=== PATIENT | male | born 1945 | race American Indian/Alaskan Native ===

== ENCOUNTER 2017-12-04 10:55 | Emergency (ER) | payer MEDICARE ==
[2017-12-04 11:08] VITALS: BP 148/67
[2017-12-04] MEDS ORDERED: DUONEB *Not for PRN Use IH ONE (12:16)
[2017-12-04] MEDS ORDERED: DELTASONE PO ONE (12:17)
--- NOTE | 2017-12-04 12:18 | Emergency Department Report ---
Chief Complaint: Adult Asthma Stated Complaint: DIFFICULTY BREATHING Time Seen by Provider: 12/04/17 12:12 - HPI History of Present Illness: 72-year-old male presents to the emergency department with the complaint of a one-week history of some shortness of breath, wheezing and coughing. He denies any chest pain, fever, nausea, vomiting, back pain or diaphoresis. He says that it feels like an asthma attack and says that he has a remote history of asthma. He does not have any inhaler or nebulizer treatments and did not take anything for his symptoms prior to presentation. No recent travel or sick contacts at home. He has a primary care physician and says that he had a physical 2 weeks ago, including blood work, and everything was normal. - ROS Review of Systems: Positive for shortness of breath, wheezing, cough Negative for chest pain, fever, back pain, diaphoresis, vomiting - Exam Vital Signs: Vital Signs 12/04/17 12/04/17 11:03 12:10 Temperature 98.2 F Pulse Rate 67 Respiratory 18 16 Rate Blood Pressure 148/67 O2 Sat by Pulse 96 Oximetry Physical Exam: Normal heart sounds to auscultation. Mild wheezing on inspiration and expiration. No accessory muscle use or signs of respiratory distress. MSE screening note: Focused history and physical exam performed. Due to findings the following was ordered: The patient will have a 2 view chest x-ray, received prednisone and a breathing treatment. The patient refused labs at this time. ED Disposition for MSE Condition: Stable Referrals: PRIMARY CARE, [Primary Care Provider] - 3-5 Days
--- NOTE | 2017-12-04 12:52 | XRay Report ---
ROUTINE CHEST, TWO VIEWS: HISTORY: Shortness of breath. The trachea, heart, mediastinal contour, lung figueroa and bony thorax are unremarkable. IMPRESSION: No acute cardiopulmonary process is identified.
--- NOTE | 2017-12-04 13:39 | Emergency Department Report ---
ED Asthma HPI - General Chief Complaint: Adult Asthma Stated Complaint: DIFFICULTY BREATHING Time Seen by Provider: 12/04/17 12:12 Source: patient Mode of arrival: Ambulatory Limitations: No Limitations - History of Present Illness Initial Comments: This is a 72-year-old male nontoxic, well nourished in appearance, no acute signs of distress presents to the ED with c/o of shortness of breath and wheezing times x1 week. Patient stated that he has been outside around pollen a lot. Patient denies any productive cough. Patient denies any sick contact. Patient denies any recent travels, long car, recent hospital stays. Patient denies any calf pain or calf tenderness. Patient denies any chest pain, fever, chills, nausea, vomiting, hemoptysis, numbness, tingling, headache or stiff neck. Patient denies any drug allergies. Past medical history includes asthma. MD Complaint: "asthma attack", shortness of breath, wheezing -: week(s) (1) Asthma History: childhood onset Severity: mild Context: none known Associated Symptoms: dry cough - Related Data Current Asthma Therapy: none Previous Rx's Medication Instructions Recorded Last Taken Type ALBUTEROL Inhaler [ProAir HFA 2 puff IH QID PRN #1 inhalation 12/04/17 Unknown Rx Inhaler] Prednisone [predniSONE 10 mg 10 mg PO .TAPER #1 tab.ds.pk 12/04/17 Unknown Rx (6-Day Pack, 21 Tabs)] Allergies Allergy/AdvReac Type Severity Reaction Status Date / Time No Known Allergies Allergy Unverified 12/04/17 11:03 ED Review of Systems ROS: Stated complaint: DIFFICULTY BREATHING Other details as noted in HPI Constitutional: denies: chills, fever Eyes: denies: eye pain, eye discharge, vision change ENT: denies: ear pain, throat pain Respiratory: cough, shortness of breath, wheezing Cardiovascular: denies: chest pain, palpitations Endocrine: no symptoms reported Gastrointestinal: denies: abdominal pain, nausea, diarrhea Genitourinary: denies: urgency, dysuria Musculoskeletal: denies: back pain, joint swelling, arthralgia Skin: denies: rash, lesions Neurological: denies: headache, weakness, paresthesias Psychiatric: denies: anxiety, depression Hematological/Lymphatic: denies: easy bleeding, easy bruising ED Past Medical Hx - Past Medical History Hx Asthma: Yes - Surgical History Additional Surgical History: HERNIA - Social History Smoking Status: Never Smoker Substance Use Type: None - Medications Home Medications: Home Medications Medication Instructions Recorded Confirmed Last Taken Type ALBUTEROL Inhaler [ProAir HFA 2 puff IH QID PRN #1 inhalation 12/04/17 Unknown Rx Inhaler] Prednisone [predniSONE 10 mg 10 mg PO .TAPER #1 tab.ds.pk 12/04/17 Unknown Rx (6-Day Pack, 21 Tabs)] ED Physical Exam - General Limitations: No Limitations General appearance: alert, in no apparent distress - Head Head exam: Present: atraumatic, normocephalic - Eye Eye exam: Present: normal appearance Pupils: Present: normal accommodation - ENT ENT exam: Present: normal exam, mucous membranes moist - Neck Neck exam: Present: normal inspection, full ROM. Absent: tenderness, meningismus, lymphadenopathy - Respiratory Respiratory exam: Present: normal lung sounds bilaterally, wheezes (bilateral upper and lower lobes). Absent: respiratory distress, rales, rhonchi, stridor, chest wall tenderness, accessory muscle use, decreased breath sounds, prolonged expiratory - Cardiovascular Cardiovascular Exam: Present: regular rate, normal rhythm, normal heart sounds. Absent: bradycardia, tachycardia, irregular rhythm, systolic murmur, diastolic murmur, rubs, gallop - GI/Abdominal GI/Abdominal exam: Present: soft, normal bowel sounds - Rectal Rectal exam: Present: deferred - Extremities Exam Extremities exam: Present: normal inspection, full ROM, normal capillary refill - Back Exam Back exam: Present: normal inspection, full ROM - Neurological Exam Neurological exam: Present: alert, oriented X3, normal gait - Psychiatric Psychiatric exam: Present: normal affect, normal mood - Skin Skin exam: Present: warm, dry, intact, normal color. Absent: rash ED Course Vital Signs 12/04/17 12/04/17 11:03 12:10 Temperature 98.2 F Pulse Rate 67 Respiratory 18 16 Rate Blood Pressure 148/67 O2 Sat by Pulse 96 Oximetry - Reevaluation(s) Reevaluation #1: 12/04/17 13:39 Patient is speaking in full sentences with no signs of distress noted. - Consultations Consultation #1: 12/04/17 13:39 Patient has been consulted with Dr. Palacios about patient history, physical exam, and xray and examined and screened patient and agrees to ED plan of care and discharge plan of care. ED Medical Decision Making - Medical Decision Making This is a 72-year-old male that presents with asthma exacerbation. Patient is stable and was examined by me. Chest x-ray has been obtained and dictated by the radiologist within normal limits. Patient is notified of the x-ray report with no questions noted by the patient. Patient did receive DuoNeb and steroids in the ED which patient the symptoms has resolved and subsided. Posttreatment and there is no wheezing upon auscultation. Patient is discharged with albuterol and prednisone. Patient was referred to Follow-up with a primary care doctor in 3-5 days or if symptoms worsen and continue return to emergency room as soon as possible. At time of discharge, the patient does not seem toxic or ill in appearance. No acute signs of distress noted. Patient agrees to discharge treatment plan of care. No further questions noted by the patient. This chart is dictated with using [employer] Critical care attestation.: If time is entered above; I have spent that time in minutes in the direct care of this critically ill patient, excluding procedure time. ED Disposition Clinical Impression: Asthma exacerbation Qualifiers: Asthma severity: mild Asthma persistence: intermittent Qualified Code(s): J45.21 - Mild intermittent asthma with (acute) exacerbation Disposition: DC-01 TO HOME OR SELFCARE Is pt being admited?: No Does the pt Need Aspirin: No Condition: Stable Instructions: Asthma (ED) Additional Instructions: Follow-up with a primary care doctor in 3-5 days or if symptoms worsen and continue return to emergency room as soon as possible. Prescriptions: ALBUTEROL Inhaler [ProAir HFA Inhaler] 2 puff IH QID PRN #1 inhalation PRN Reason: Shortness Of Breath Prednisone [predniSONE 10 mg (6-Day Pack, 21 Tabs)] 10 mg PO .TAPER #1 tab.ds.pk Referrals: PRIMARY CARE, [Primary Care Provider] - 3-5 Days JONY SALINAS MD [Staff Physician] - 3-5 Days [facility] [Outside] - 3-5 Days [facility] [Outside] - 3-5 Days Forms: Work/School Release Form(ED)
== END 2017-12-04 13:59 | disposition home or self-care (01) ==
LOC: ED 10:55
DX: J45.21 Mild intermittent asthma with (acute) exacerbation (principal)
CPT/HCPCS: 71046; 94640; J7512

== ENCOUNTER 2020-10-20 12:22 | Emergency (ER) | payer MEDICARE ==
--- NOTE | 2020-10-20 12:43 | Event Note ---
ED Screening Note Date of service: 10/20/20 Time: 12:40 ED Screening Note: 75-year-old male patient presents emergency department complaints of chest pain and left facial numbness starting 11 hours ago. Patient states both of these symptoms have improved significantly since onset without intervention. No history of similar symptoms. No known cardiac risk factors. Patient is not anticoagulated. General: Awake, appropriately interactive, no acute distress. Neck: Supple. Full range of motion intact. Cardiovascular: Regular rate and rhythm. Normal peripheral perfusion. Pulmonary: Clear to auscultation bilaterally. No respiratory distress. Patient is speaking normally without use of accessory muscles. Skin: No apparent rashes or lesions. Neurological: No facial asymmetry although patient reports decreased sensation to light touch along the left side of the face. Speech is clear. Follows commands. Patient is alert and oriented. Strength and sensation intact throughout. Musculoskeletal: Moves all four extremities spontaneously with normal range of motion. Psych: Cooperative. Appropriate mood and affect. Patient is not a candidate for TPA due to delayed presentation; CT head w/o contrast ordered in addition to cardiac work-up. I have greeted and performed a focused rapid initial assessment of this patient. A comprehensive ED assessment and evaluation of the patient, analysis of all test results, and completion of the medical decision-making process will be conducted by additional ED providers. This initial assessment/diagnostic orders/clinical plan/treatment(s) is/are subject to change based on patients health status, clinical progression and re-assessment. Further treatment and workup at subsequent clinical provider's discretion. Patient/guardian urged not to elope from the ED as their condition may be serious if not clinically assessed and managed.
--- NOTE | 2020-10-20 13:08 | XRay Report ---
CHEST 2 VIEWS INDICATION / CLINICAL INFORMATION: chest pain. COMPARISON: 12/04/2017. FINDINGS: SUPPORT DEVICES: None. HEART / MEDIASTINUM: No significant abnormality. LUNGS / PLEURA: No significant pulmonary or pleural abnormality. No pneumothorax. ADDITIONAL FINDINGS: No significant additional findings. IMPRESSION: 1. No acute cardiopulmonary abnormality. Signer Name: Baron Butt MD Signed: 10/20/2020 1:04 PM Workstation Name: [id number]
[2020-10-20 13:22] LABS: Hematocrit 38.2 % (35.5-45.6); Hemoglobin 12.7 gm/dl (11.8-15.2); Mean Corpuscular HGB Conc 33 % (32-34); Mean Corpuscular Volume 79 fl (84-94); Platelet Count 122 K/mm3 (140-440); Red Blood Count 4.84 M/mm3 (3.65-5.03)
[2020-10-20 13:32] LABS: INR 1.08 (0.87-1.13); Partial Thromboplastin Time 28.1 Sec. (24.2-36.6)
[2020-10-20 13:43] LABS: Alanine Aminotransferase 77 units/L (7-56); Albumin 3.8 g/dL (3.9-5); BUN/Creatinine Ratio 9; Blood Urea Nitrogen 11 mg/dL (9-20); Calcium 9.4 mg/dL (8.4-10.2); Hemolysis Index 94
[2020-10-20 13:57] LABS: Anisocytosis 1+; Total Cells Counted 100
[2020-10-20 13:58] LABS: Hypochromasia 1+; Platelet Estimate Consistent w Auto; Target Cells Few
--- NOTE | 2020-10-20 14:10 | Cat Scan Report ---
CT head/brain wo con INDICATION / CLINICAL INFORMATION: 75 years Male; left facial numbness x11 hrs. TECHNIQUE: Routine CT head without contrast. All CT scans at this location are performed using CT dos e reduction for ALARA by means of automated exposure control. COMPARISON: None. FINDINGS: There is mild cerebral white matter disease most consistent with microvascular angiopathy. There is a lso mild cerebral atrophy. The ventricular system is correspondingly appropriate in size and configur ation. There is no clear CT evidence of acute intracranial hemorrhage or significant mass effect. The re is mild calcification along the falx and tentorium. ORBITS: No significant abnormality of visualized orbits. SINUSES / MASTOIDS: No significant abnormality in the visualized paranasal sinuses or mastoid air oscar ls. CRANIOCERVICAL JUNCTION: No significant abnormality. ADDITIONAL FINDINGS: There is dense atherosclerotic calcification within the distal internal carotid arteries. IMPRESSION: 1. This mild microvascular angiopathy and cerebral atrophy as described without CT evidence of acute intracranial hemorrhage. Signer Name: Hardik Whitten MD Signed: 10/20/2020 2:06 PM Workstation Name: [id number]
[2020-10-20] MEDS ORDERED: SODIUM CHLORIDE 0.9% 500 ML 500 ML IV ONE (15:08)
--- NOTE | 2020-10-20 15:09 | Emergency Department Report ---
ED General Adult HPI - General Chief complaint: Chest Pain Stated complaint: my chest hurts and my face and neck were numb PUI?: No Time Seen by Provider: 10/20/20 14:40 Source: patient, RN notes reviewed, old records reviewed Mode of arrival: Ambulatory Limitations: No Limitations - History of Present Illness Initial comments: The patient was evaluated in the emergency department for symptoms described in the history of present illness. He/she was evaluated in the context of the global COVID-19 pandemic, which necessitated consideration that the patient might be at risk for infection with the virus that causes COVID-19. Institutional protocols and algorithms that pertain to the evaluation of patients at risk for COVID-19 are in a state of rapid change based on information released by regulatory bodies including the CDC and federal and state organizations. These policies and algorithms were followed during the pat ient's care in the emergency department. Please note that these policies, procedures and recommendations changed on a rapid basis. The patient is a pleasant 75-year-old gentleman. He is [id number], and not known to myself previously. He presents to the ER today with a complaint of nontraumatic left-sided chest pain, which started last night/this morning, at 1:00 in the morning, that radiated up to his left neck, and left face. He reports a sensation of left facial numbness and left neck numbness, which is now resolved. The patient states his chest pain is improved at this time. The patient has a mild headache, but denies loss of vision, midline neck pain, abdominal pain, vomiting, diaphoresis, he denies loss of taste and smell, he denies travel, surgery, DVT and pulmonary embolism risk factors. No recent aspirin consumption, no recent cardiac risk ratification. No signif icant family history that he is aware of. He reports that he feels that his face feels back to normal, and he has minimal chest discomfort at this time. He denies additional injuries and complaints. He denies loss of vision, and jaw claudication. -: Gradual, hour(s) Location: chest Radiation: neck, other (face) Severity scale (0 -10): 5 Quality: aching Consistency: now resolved Improves with: none Worsens with: none Associated Symptoms: denies other symptoms - Related Data Previous Rx's Medication Instructions Recorded Last Taken Type Albuterol Mdi (or & Nicu Only) 2 puff IH QID PRN #1 inhalation 12/04/17 Unknown Rx [ProAir HFA Inhaler] Prednisone [predniSONE 10 mg 10 mg PO .TAPER #1 tab.ds.pk 12/04/17 Unknown Rx (6-Day Pack, 21 Tabs)] Amlodipine Besylate [Norvasc] 5 mg PO QDAY #30 tablet 10/20/20 Unknown Rx Aspirin 325 mg PO QDAY #30 tablet 10/20/20 Unknown Rx Allergies Allergy/AdvReac Type Severity Reaction Status Date / Time No Known Allergies Allergy Unverified 12/04/17 11:03 ED Review of Systems ROS: Stated complaint: CHEST PAIN/NUMBNESS LT FACE Other details as noted in HPI Comment: All other systems reviewed and negative Cardiovascular: chest pain Neurological: headache, numbness, paresthesias ED Past Medical Hx - Past Medical History Previous Medical History?: Yes Hx Asthma: Yes - Surgical History Past Surgical History?: Yes Additional Surgical History: HERNIA - Social History Smoking Status: Never Smoker Substance Use Type: None - Medications Home Medications: Home Medications Medication Instructions Recorded Confirmed Last Taken Type Albuterol Mdi (or & Nicu Only) 2 puff IH QID PRN #1 inhalation 12/04/17 Unknown Rx [ProAir HFA Inhaler] Prednisone [predniSONE 10 mg 10 mg PO .TAPER #1 tab.ds.pk 12/04/17 Unknown Rx (6-Day Pack, 21 Tabs)] Amlodipine Besylate [Norvasc] 5 mg PO QDAY #30 tablet 10/20/20 Unknown Rx Aspirin 325 mg PO QDAY #30 tablet 10/20/20 Unknown Rx ED Physical Exam - General Limitations: No Limitations General appearance: alert, in no apparent distress - Head Head exam: Present: atraumatic, normocephalic - Eye Eye exam: Present: normal appearance, PERRL, EOMI, other (Visual acuity intact to finger counting, color perception, reading at a close distance). Absent: nystagmus - ENT ENT exam: Present: normal exam, normal orophraynx, mucous membranes moist, normal external ear exam - Neck Neck exam: Present: normal inspection, full ROM. Absent: tenderness, meningismus - Respiratory Respiratory exam: Present: normal lung sounds bilaterally. Absent: respiratory distress, wheezes, rales, rhonchi, stridor, chest wall tenderness - Cardiovascular Cardiovascular Exam: Present: regular rate, normal rhythm, normal heart sounds. Absent: bradycardia, tachycardia, irregular rhythm, systolic murmur, diastolic murmur, rubs, gallop - GI/Abdominal GI/Abdominal exam: Present: soft. Absent: distended, tenderness, guarding, rebound, rigid, pulsatile mass - Rectal Rectal exam: Present: deferred - Extremities Exam Extremities exam: Present: normal inspection, full ROM, other (2+ pulses noted in the bilateral upper and lower extremities. There is no palpable cord. negative Homans sign. Muscular compartments are soft. The pelvis is stable.). Absent: pedal edema, calf tenderness - Back Exam Back exam: Present: normal inspection, full ROM. Absent: tenderness, CVA tenderness (R), CVA tenderness (L), paraspinal tenderness, vertebral tenderness - Neurological Exam Neurological exam: Present: alert, normal gait, other (No facial droop. Tongue midline. Extraocular movements intact bilaterally. Facial sensation intact to light touch in V1, V2, V3 distribution bilaterally. 5 and a 5 strength in 4 extremities. Sensation intact to light touch in 4 extremities.). Absent: motor sensory deficit - Psychiatric Psychiatric exam: Present: normal affect, normal mood - Skin Skin exam: Present: warm, dry, intact, normal color. Absent: rash ED Course Vital Signs 10/20/20 10/20/20 10/20/20 12:34 15:18 15:21 Temperature 98.0 F 98.2 F Pulse Rate 71 59 L Respiratory 18 16 16 Rate Blood Pressure 157/76 231/126 [Right] O2 Sat by Pulse 97 98 Oximetry - Reevaluation(s) Reevaluation #1: 10/20/20 15:42 Differential diagnosis, including but not limited to: Acute coronary syndrome, GERD, gastritis, hiatal hernia, pneumonia, TIA, carotid dissection, aortic dissection Assessment and plan: 75-year-old gentleman with a complaint of left-sided chest pain and pressure that radiates to the left neck and face, last known well time 1:00 this morning, neurologic symptoms now resolved, chest pain now resolved, who is not currently tachycardic, tachypneic or hypoxic, who denies DVT and pulmonary embolism risk factors, who is low risk by Wells criteria for pulmonary embolism. Patient is at moderate risk for major adverse cardiac event as per heart score. He has an NIH score of 0. Patient initially amenable to CT angiogram head and neck to evaluate for dissection, CT angiogram of head and neck will also evaluate aortic structures. We did recommend admission to the medical service for cardiac risk ratification, and TIA evaluation, if CT angiogram negative for pertinent findings. Patient currently presents as awake, alert, oriented, clinically sober, free from distracting injury, and he exhibits decision-making capacity. He is alert and oriented x3, and we discussed the risks of leaving, without admission, including heart attack, stroke, , disability, paralysis, permanent loss of quality of life. At the moment, the patient is amenable to CT angiogram diagnostic work-up, but indicates that secondary to pressing family issues, he does not believe that he can be admitted at this time, and did not want to come back this evening. I did advise the patient that by leaving, this would be a discharge AGAINST MEDICAL ADVICE/recommendations, and we discussed all the risks associated there with, this is witnessed by nurse Harriett Nixon. Reassess after CT angiogram. Reevaluation #2: 10/20/20 15:51 Multiple extensive discussions had with patient regarding recommendation for CT angiogram, admission Patient is declining admission at this time, and will sign out AGAINST MEDICAL ADVICE. He endorses that he is reliable to return to the emergency room when he is able to make appropriate accommodations. He still presents as alert, oriented, sober, exhibiting decision-making capacity, and is free from distracting injury. AMA conversation witnessed by Marti Nixon ED Medical Decision Making - Lab Data Result diagrams: 10/20/20 12:48 10/20/20 12:48 Vital Signs 10/20/20 10/20/20 10/20/20 12:34 15:18 15:21 Temperature 98.0 F 98.2 F Pulse Rate 71 59 L Respiratory 18 16 16 Rate Blood Pressure 157/76 231/126 [Right] O2 Sat by Pulse 97 98 Oximetry Lab Results 10/20/20 10/20/20 10/20/20 Range/Units 12:48 12:48 12:48 WBC 5.6 (4.5-11.0) K/mm3 RBC 4.84 (3.65-5.03) M/mm3 Hgb 12.7 (11.8-15.2) gm/dl Hct 38.2 (35.5-45.6) % MCV 79 L (84-94) fl MCH 26 L (28-32) pg MCHC 33 (32-34) % RDW 16.0 H (13.2-15.2) % Plt Count 122 L (140-440) K/mm3 Lymph % (Auto) Cloth Desizing Range Tender Add Manual Diff Complete Total Counted 100 Seg Neutrophils % Cloth Desizing Range Tender Seg Neuts % (Manual) 31.0 L (40.0-70.0) % Lymphocytes % (Manual) 56.0 H (13.4-35.0) % Monocytes % (Manual) 6.0 (0.0-7.3) % Eosinophils % (Manual) 6.0 H (0.0-4.3) % Basophils % (Manual) 1.0 (0.0-1.8) % Nucleated RBC % Not Reportable Seg Neutrophils # Man 1.7 L (1.8-7.7) K/mm3 Band Neutrophils # 0.0 K/mm3 Lymphocytes # (Manual) 3.1 (1.2-5.4) K/mm3 Abs React Lymphs (Man) 0.0 K/mm3 Monocytes # (Manual) 0.3 (0.0-0.8) K/mm3 Eosinophils # (Manual) 0.3 (0.0-0.4) K/mm3 Basophils # (Manual) 0.1 (0.0-0.1) K/mm3 Metamyelocytes # 0.0 K/mm3 Myelocytes # 0.0 K/mm3 Promyelocytes # 0.0 K/mm3 Blast Cells # 0.0 K/mm3 WBC Morphology Not Reportable Hypersegmented Neuts Not Reportable Hyposegmented Neuts Not Reportable Hypogranular Neuts Not Reportable Smudge Cells Not Reportable Toxic Granulation Not Reportable Toxic Vacuolation Not Reportable Dohle Bodies Not Reportable Pelger-Huet Anomaly Not Reportable Danielle Rods Not Reportable Platelet Estimate Consistent w auto Clumped Platelets Not Reportable Plt Clumps, EDTA Not Reportable Large Platelets Not Reportable Giant Platelets Not Reportable Platelet Satelliting Not Reportable Plt Morphology Comment Not Reportable RBC Morphology Not Reportable Dimorphic RBCs Not Reportable Polychromasia Not Reportable Hypochromasia 1+ Poikilocytosis Not Reportable Anisocytosis 1+ Microcytosis Not Reportable Macrocytosis Not Reportable Spherocytes Not Reportable Pappenheimer Bodies Not Reportable Sickle Cells Not Reportable Target Cells Few Tear Drop Cells Not Reportable Ovalocytes Not Reportable Helmet Cells Not Reportable Roberson-Laureldale Bodies Not Reportable Luttrell Rings Not Reportable Farideh Cells Not Reportable Bite Cells Not Reportable Crenated Cell Not Reportable Elliptocytes Not Reportable Acanthocytes (Spur) Not Reportable Rouleaux Not Reportable Hemoglobin C Crystals Not Reportable Schistocytes Not Reportable Malaria parasites Not Reportable Bandar Bodies Not Reportable Hem Pathologist Commnt No PT 13.9 (12.2-14.9) Sec. INR 1.08 (0.87-1.13) APTT 28.1 (24.2-36.6) Sec. Sodium 136 L (137-145) mmol/L Potassium 4.9 (3.6-5.0) mmol/L Chloride 101.7 (98-107) mmol/L Carbon Dioxide 22 (22-30) mmol/L Anion Gap 17 mmol/L BUN 11 (9-20) mg/dL Creatinine 1.2 (0.8-1.3) mg/dL Estimated GFR > 60 ml/min BUN/Creatinine Ratio 9 % Glucose 101 H (75-100) mg/dL Calcium 9.4 (8.4-10.2) mg/dL Magnesium 1.80 (1.7-2.3) mg/dL Total Bilirubin 1.20 (0.1-1.2) mg/dL AST 89 H (5-40) units/L ALT 77 H (7-56) units/L Alkaline Phosphatase 106 (35-129) units/L Troponin T < 0.010 (0.00-0.029) ng/mL Total Protein 8.5 H (6.3-8.2) g/dL Albumin 3.8 L (3.9-5) g/dL Albumin/Globulin Ratio 0.8 % - EKG Data -: EKG Interpreted by Md EKG shows normal: sinus rhythm Rate: normal - EKG Data When compared to previous EKG there are: previous EKG unavailable 10/20/20 15:51 Sinus rhythm, 74 bpm. Normal axis, normal intervals, poor R wave progression, left ventricular hypertrophy. Time of interpretation, 12: 44 PM Abnormal EKG, not a STEMI. - Radiology Data Radiology results: pending, report reviewed, image reviewed CT head/brain wo con INDICATION / CLINICAL INFORMATION: 75 years Male; left facial numbness x11 hrs. TECHNIQUE: Routine CT head without contrast. All CT scans at this location are performed using CT dose reduction for ALARA by means of automated exposure control. COMPARISON: None. FINDINGS: There is mild cerebral white matter disease most consistent with microvascular angiopathy. There is also mild cerebral atrophy. The ventricular system is correspondingly appropriate in size and configuration. There is no clear CT evidence of acute intracranial hemorrhage or significant mass effect. There is mild calcification along the falx and tentorium. ORBITS: No significant abnormality of visualized orbits. SINUSES / MASTOIDS: No significant abnormality in the visualized paranasal sinuses or mastoid air cells. CRANIOCERVICAL JUNCTION: No significant abnormality. ADDITIONAL FINDINGS: There is dense atherosclerotic calcification within the distal internal carotid arteries. IMPRESSION: 1. This mild microvascular angiopathy and cerebral atrophy as described without CT evidence of acute intracranial hemorrhage. Signer Name: Hardik Whitten MD Signed: 10/20/2020 1:06 PM Workstation Name: [id number] CHEST 2 VIEWS INDICATION / CLINICAL INFORMATION: chest pain. COMPARISON: 12/04/2017. FINDINGS: SUPPORT DEVICES: None. HEART / MEDIASTINUM: No signif icant abnormality. LUNGS / PLEURA: No significant pulmonary or pleural abnormality. No pneumothorax. ADDITIONAL FINDINGS: No significant additional findings. IMPRESSION: 1. No acute cardiopulmonary abnormality. Signer Name: Baron Butt MD Signed: 10/20/2020 12:04 PM Critical care attestation.: If time is entered above; I have spent that time in minutes in the direct care of this critically ill patient, excluding procedure time. ED Disposition Clinical Impression: Acute chest pain, Elevated blood pressure reading, Facial numbness Disposition: [id number] LEFT AGAINST MED ADVICE Is pt being admited?: No Does the pt Need Aspirin: No Condition: Undetermined Instructions: Chest Pain (ED), Hypertension, Adult, Transient Ischemic Attack, Nonspecific Chest Pain, Adult Additional Instructions: As we discussed, you have left the hospital/emergency room AGAINST MEDICAL ADV ICE. By leaving, you risked , disability, paralysis, permanent loss of quality of life. The ER is open 24 hours a day, 7 days a week. It never closes. Please return to the emergency room right away if and when you change your mind. If you decide not to return to the emergency room, please follow-up with the listed physician referrals as soon as possible. Referrals: [facility], [facility] [Provider Group] - 3-5 Days [facility] [Provider Group] - 3-5 Days TORI ANDUJAR MD [Referring] - 3-5 Days Heart Score - HEART Score History: Slightly suspicious EKG: Non-specific Age: > 65 Risk factors: 1-2 risk factors Troponin: < normal limit HEART Score: 4 - EKG Read Time Time EKG Completed: 12:27 EKG Read Time: 12:44 - Critical Actions Critical Actions: 4-6 pts:12-16.6% risk of adverse cardiac event. Should be admitted - Assessment Assessment Interval: Baseline - Level of Consciousness 1a. Level of Consciousness: alert/keenly responsive - LOC Questions 1b. LOC Questions: answers both correctly - LOC Command 1c. LOC Commands: performs tasks correctly - Best Gaze 2. Best Gaze: normal - Visual 3. Visual: no visual loss - Facial Palsy 4. Facial Palsy: normal symmetrical movement - Motor Arm 5a. Motor Arm Left: no drift 5b. Motor Arm Right: no drift - Motor Leg 6a. Motor Leg Left: no drift 6b. Motor Leg Right: no drift - Limb Ataxia 7. Limb Ataxia: absent - Sensory 8. Sensory: normal - Best Language 9. Best Language: no aphasia - Dysarthria 10. Dysarthria: normal - Extinction and Inattention 11. Extinction/Inattention: no abnormality - Scoring Total Score: 0 Stroke Severity: No Stroke Symptoms
[2020-10-20 15:21] VITALS: BP 231/126
--- NOTE | 2020-10-23 09:29 | Electrocardiograph Report ---
[facility] Test Date: 2020-10-20 Test Time: 12:27:37 Pat Name: JACLYN TORRES Department: Room: Gender: M Pail Tester: SHILO : 1945 Requested By: MINERVA STEIN Order Number: [id number] Reading MD: Sbe Figueroa Measurements Intervals [place] Rate: 69 P: 57 ND: 195 QRS: 28 QRSD: 85 T: 49 QT: 395 QTc: 422 Interpretive Statements Sinus rhythm No previous ECG available for comparison Electronically Signed On 10-23-2020 9:28:32 EDT by Seb Figueroa
== END 2020-10-20 16:23 | disposition left against medical advice (07) ==
LOC: ED 12:22
DX: R07.89 Other chest pain (principal); R20.0 Anesthesia of skin; R03.0 Elevated blood-pressure reading, without diagnosis of hypertension; J45.909 Unspecified asthma, uncomplicated; Z98.890 Other specified postprocedural states; Z79.899 Other long term (current) drug therapy
CPT/HCPCS: 36415; 70450; 71046; 80053; 83735; 84484; 85007; 85025; 85610; 85730; 93005

== ENCOUNTER 2020-10-20 19:31 | Observation (INO) | payer MEDICARE ==
[2020-10-20 22:21] LABS: Hematocrit 36.4 % (35.5-45.6); Hemoglobin 12.1 gm/dl (11.8-15.2); Mean Corpuscular HGB Conc 33 % (32-34); Mean Corpuscular Volume 77 fl (84-94); Platelet Count 113 K/mm3 (140-440); Red Blood Count 4.71 M/mm3 (3.65-5.03); Red Cell Distribution Width 15.5 % (13.2-15.2)
[2020-10-20 22:45] LABS: Alanine Aminotransferase 75 units/L (7-56); BUN/Creatinine Ratio 9; Blood Urea Nitrogen 16 mg/dL (9-20); Calcium 9.6 mg/dL (8.4-10.2); Hemolysis Index 4
[2020-10-20 22:53] LABS: Anisocytosis 1+; Hypochromasia 1+; Target Cells Few; Total Cells Counted 100
--- NOTE | 2020-10-21 02:11 | Emergency Department Report ---
ED Chest Pain HPI - General Chief Complaint: Chest Pain Stated Complaint: CHEST PAIN Time Seen by Provider: 10/21/20 01:28 Source: patient Mode of arrival: Ambulatory Limitations: No Limitations - History of Present Illness Initial Comments: 75-year-old male presents to ED for admission. Patient states he was seen earlier on 10/20/2020. Reports he was having left-sided chest pain the night before with radiation to his left neck and face with associated left facial numbness. Patient decided to come to the ED for evaluation on yesterday. Patient received a work-up which included labs, EKG, CT head. CT head was negative. At that time, the ER provider spoke to patient regarding admission. Patient states he was not approved for admission earlier so he left AMA and has now returned to be admitted. Patient currently denies any chest pain, neck pain or headache. States his facial numbness has resolved. MD Complaint: chest pain -: days(s) (1) Onset: during rest Pain Location: left chest Pain Radiation: neck Severity: moderate Quality: aching Consistency: now resolved Improves With: nothing Worsens With: nothing re: denies: nausea, vomting, diaphoresis, dyspnea Other Symptoms: denies: cough, fever, leg swelling - Related Data Previous Rx's Medication Instructions Recorded Last Taken Type Albuterol Mdi (or & Nicu Only) 2 puff IH QID PRN #1 inhalation 12/04/17 Unknown Rx [ProAir HFA Inhaler] Prednisone [predniSONE 10 mg 10 mg PO .TAPER #1 tab.ds.pk 12/04/17 Unknown Rx (6-Day Pack, 21 Tabs)] Amlodipine Besylate [Norvasc] 5 mg PO QDAY #30 tablet 10/20/20 Unknown Rx Aspirin 325 mg PO QDAY #30 tablet 10/20/20 Unknown Rx Allergies Allergy/AdvReac Type Severity Reaction Status Date / Time No Known Allergies Allergy Unverified 12/04/17 11:03 Heart Score - HEART Score History: Moderately suspicious EKG: Normal Age: > 65 Risk factors: 1-2 risk factors Troponin: < normal limit HEART Score: 4 - EKG Read Time Time EKG Completed: 22:24 EKG Read Time: 22:30 ED Review of Systems ROS: Stated complaint: CHEST PAIN Other details as noted in HPI Comment: All other systems reviewed and negative Cardiovascular: chest pain Neurological: headache, numbness. denies: weakness ED Past Medical Hx - Past Medical History Hx Asthma: Yes - Surgical History Additional Surgical History: HERNIA - Social History Smoking Status: Never Smoker Substance Use Type: None - Medications Home Medications: Home Medications Medication Instructions Recorded Confirmed Last Taken Type Albuterol Mdi (or & Nicu Only) 2 puff IH QID PRN #1 inhalation 12/04/17 Unknown Rx [ProAir HFA Inhaler] Prednisone [predniSONE 10 mg 10 mg PO .TAPER #1 tab.ds.pk 12/04/17 Unknown Rx (6-Day Pack, 21 Tabs)] Amlodipine Besylate [Norvasc] 5 mg PO QDAY #30 tablet 10/20/20 Unknown Rx Aspirin 325 mg PO QDAY #30 tablet 10/20/20 Unknown Rx ED Physical Exam - General Limitations: No Limitations General appearance: alert, in no apparent distress - Head Head exam: Present: atraumatic, normocephalic - Eye Eye exam: Present: normal appearance, EOMI - ENT ENT exam: Present: mucous membranes moist - Neck Neck exam: Present: normal inspection - Respiratory Respiratory exam: Present: normal lung sounds bilaterally. Absent: respiratory distress - Cardiovascular Cardiovascular Exam: Present: regular rate, normal rhythm - GI/Abdominal GI/Abdominal exam: Present: soft. Absent: distended, tenderness - Extremities Exam Extremities exam: Present: normal inspection - Neurological Exam Neurological exam: Present: alert, oriented X3, CN II-XII intact. Absent: motor sensory deficit - Psychiatric Psychiatric exam: Present: normal affect, normal mood - Skin Skin exam: Present: warm, dry, intact, normal color ED Course Vital Signs 10/20/20 10/21/20 21:57 01:45 Temperature 98.0 F Pulse Rate 80 64 Respiratory 18 14 Rate Blood Pressure 181/66 204/79 [Right] O2 Sat by Pulse 100 100 Oximetry ED Medical Decision Making - Lab Data Result diagrams: 10/20/20 22:06 10/20/20 22:06 - EKG Data -: EKG Interpreted by Me EKG shows normal: sinus rhythm, axis, intervals, QRS complexes, ST-T waves Rate: normal - EKG Data Interpretation: no acute changes - Radiology Data Radiology results: report reviewed, image reviewed - Medical Decision Making 75-year-old male, no past medical history, returns to ED for admission for chest pain. Patient previously left AMA earlier in the day. Patient denies any chest pain, headache, paresthesias at this time. EKG is unremarkable for any ST changes. Troponin is normal. Patient found to be hypertensive, so labetalol 20 mg IV has been ordered. Patient will be admitted by Dr. Blunt, hospitalist, for further management. - Differential Diagnosis ACS, hypertensive emergency, Critical care attestation.: If time is entered above; I have spent that time in minutes in the direct care of this critically ill patient, excluding procedure time. ED Disposition Clinical Impression: Acute chest pain, Hypertensive urgency Disposition: -09 OP ADMIT IP TO THIS HOSP Is pt being admited?: Yes Condition: Stable Instructions: Chest Pain (ED) Referrals: PRIMARY CARE, [Primary Care Provider] - 3-5 Days Time of Disposition: 02:34
[2020-10-21] MEDS ORDERED: ALBUTEROL 8.5 GM MDI INHALATION IH PRN (03:13)
[2020-10-21] MEDS ORDERED: ONDANSETRON 4 MG/2 ML INJ IV PRN (03:14)
[2020-10-21] MEDS ORDERED: NITROGLYCERIN 0.4 MG TAB SUBL SL PRN (03:14)
[2020-10-21] MEDS ORDERED: ACETAMINOPHEN 325 MG TAB PO PRN ×2 (03:14)
[2020-10-21] MEDS ORDERED: traMADol 50 MG TAB PO PRN (03:14)
[2020-10-21] MEDS ORDERED: ALBUTEROL 2.5 MG/3 ML NEBU IH PRN (03:25)
--- NOTE | 2020-10-21 03:27 | History and Physical Report ---
History of Present Illness Date of examination: 10/21/20 Date of admission: 10/21/20 Chief complaint: Chest pain Numbness of the face History of present illness: 75-year-old male with history of asthma was brought to the emergency room because of left-sided chest pain the night before with radiation to his left neck and face with associated left facial numbness. Chest pain was left-sided radiating to the leg 5/10 which is now resolved. Patient came to the emergency room yesterday and patient received a work-up which included labs, EKG, CT head. CT head was negative. At that time, the ER provider spoke to patient regarding admission. Patient states he was not approved for admission earlier so he left AMA and has now returned to be admitted. Patient currently denies any chest pain, neck pain or headache. States his facial numbness has resolved. Today in the emergency room patient blood pressure is 204/79. Patient is hesitant to take the blood pressure medication. But patient denied any chest pain or any numbness in the face Past History Past Medical History: other (Asthma) Medications and Allergies Allergies Allergy/AdvReac Type Severity Reaction Status Date / Time No Known Allergies Allergy Unverified 12/04/17 11:03 Home Medications Medication Instructions Recorded Confirmed Last Taken Type Albuterol Mdi (or & Nicu Only) 2 puff IH QID PRN #1 inhalation 12/04/17 Unknown Rx [ProAir HFA Inhaler] Prednisone [predniSONE 10 mg 10 mg PO .TAPER #1 tab.ds.pk 12/04/17 Unknown Rx (6-Day Pack, 21 Tabs)] Amlodipine Besylate [Norvasc] 5 mg PO QDAY #30 tablet 10/20/20 Unknown Rx Aspirin 325 mg PO QDAY #30 tablet 10/20/20 Unknown Rx Exam - Constitutional Vitals: Temp Pulse Resp BP Pulse Ox 98.0 F 64 14 204/79 100 10/20/20 21:57 10/21/20 01:45 10/21/20 01:45 10/21/20 01:45 10/21/20 01:45 General appearance: Present: no acute distress, well-nourished - EENT Eyes: Present: PERRL ENT: hearing intact, clear oral mucosa - Neck Neck: Present: supple, normal ROM - Respiratory Respiratory effort: normal Respiratory: bilateral: CTA - Cardiovascular Heart Sounds: Present: S1 & S2. Absent: rub, click - Extremities Extremities: pulses symmetrical, No edema Peripheral Pulses: within normal limits - Abdominal General gastrointestinal: Present: soft, non-tender, non-distended, normal bowel sounds Male genitourinary: Present: normal - Integumentary Integumentary: Present: clear, warm, dry - Musculoskeletal Musculoskeletal: gait normal, strength equal bilaterally - Psychiatric Psychiatric: appropriate mood/affect, intact judgment & insight - Neurologic Neurologic: CNII-XII intact, moves all extremities HEART Score - HEART Score EKG: Normal Age: > 65 Risk factors: 1-2 risk factors Troponin: Troponin T < 0.010 ng/mL (0.00-0.029) 10/20/20 22:06 Troponin: < normal limit Results - Labs CBC & Chem 7: 10/20/20 22:06 10/20/20 22:06 Labs: Laboratory Last Values WBC 6.9 K/mm3 (4.5-11.0) 10/20/20 22:06 RBC 4.71 M/mm3 (3.65-5.03) 10/20/20 22:06 Hgb 12.1 gm/dl (11.8-15.2) 10/20/20 22:06 Hct 36.4 % (35.5-45.6) 10/20/20 22:06 MCV 77 fl (84-94) L 10/20/20 22:06 MCH 26 pg (28-32) L 10/20/20 22:06 MCHC 33 % (32-34) 10/20/20 22:06 RDW 15.5 % (13.2-15.2) H 10/20/20 22:06 Plt Count 113 K/mm3 (140-440) L 10/20/20 22:06 Add Manual Diff Complete 10/20/20 22:06 Total Counted 100 10/20/20 22:06 Seg Neutrophils % School Year Nanny 10/20/20 22:06 Seg Neuts % (Manual) 37.0 % (40.0-70.0) L 10/20/20 22:06 Lymphocytes % (Manual) 50.0 % (13.4-35.0) H 10/20/20 22:06 Monocytes % (Manual) 8.0 % (0.0-7.3) H 10/20/20 22:06 Eosinophils % (Manual) 4.0 % (0.0-4.3) 10/20/20 22:06 Basophils % (Manual) 1.0 % (0.0-1.8) 10/20/20 22:06 Nucleated RBC % Not Reportable 10/20/20 22:06 Seg Neutrophils # Man 2.6 K/mm3 (1.8-7.7) 10/20/20 22:06 Band Neutrophils # 0.0 K/mm3 10/20/20 22:06 Lymphocytes # (Manual) 3.5 K/mm3 (1.2-5.4) 10/20/20 22:06 Abs React Lymphs (Man) 0.0 K/mm3 10/20/20 22:06 Monocytes # (Manual) 0.6 K/mm3 (0.0-0.8) 10/20/20 22:06 Eosinophils # (Manual) 0.3 K/mm3 (0.0-0.4) 10/20/20 22:06 Basophils # (Manual) 0.1 K/mm3 (0.0-0.1) 10/20/20 22:06 Metamyelocytes # 0.0 K/mm3 10/20/20 22:06 Myelocytes # 0.0 K/mm3 10/20/20 22:06 Promyelocytes # 0.0 K/mm3 10/20/20 22:06 Blast Cells # 0.0 K/mm3 10/20/20 22:06 WBC Morphology Not Reportable 10/20/20 22:06 Hypersegmented Neuts Not Reportable 10/20/20 22:06 Hyposegmented Neuts Not Reportable 10/20/20 22:06 Hypogranular Neuts Not Reportable 10/20/20 22:06 Smudge Cells Not Reportable 10/20/20 22:06 Toxic Granulation Not Reportable 10/20/20 22:06 Toxic Vacuolation Not Reportable 10/20/20 22:06 Dohle Bodies Not Reportable 10/20/20 22:06 Pelger-Huet Anomaly Not Reportable 10/20/20 22:06 Danielle Rods Not Reportable 10/20/20 22:06 Platelet Estimate Not Reportable 10/20/20 22:06 Clumped Platelets Not Reportable 10/20/20 22:06 Plt Clumps, EDTA Not Reportable 10/20/20 22:06 Large Platelets Not Reportable 10/20/20 22:06 Giant Platelets Not Reportable 10/20/20 22:06 Platelet Satelliting Not Reportable 10/20/20 22:06 Plt Morphology Comment Not Reportable 10/20/20 22:06 RBC Morphology Not Reportable 10/20/20 22:06 Dimorphic RBCs Not Reportable 10/20/20 22:06 Polychromasia Not Reportable 10/20/20 22:06 Hypochromasia 1+ 10/20/20 22:06 Poikilocytosis Not Reportable 10/20/20 22:06 Anisocytosis 1+ 10/20/20 22:06 Microcytosis Rare 10/20/20 22:06 Macrocytosis Not Reportable 10/20/20 22:06 Spherocytes Not Reportable 10/20/20 22:06 Pappenheimer Bodies Not Reportable 10/20/20 22:06 Sickle Cells Not Reportable 10/20/20 22:06 Target Cells Few 10/20/20 22:06 Tear Drop Cells Not Reportable 10/20/20 22:06 Ovalocytes Not Reportable 10/20/20 22:06 Helmet Cells Not Reportable 10/20/20 22:06 [place] Bodies Not Reportable 10/20/20 22:06 [place] Rings Not Reportable 10/20/20 22:06 Farideh Cells Not Reportable 10/20/20 22:06 Bite Cells Not Reportable 10/20/20 22:06 Crenated Cell Not Reportable 10/20/20 22:06 Elliptocytes Not Reportable 10/20/20 22:06 Acanthocytes (Spur) Not Reportable 10/20/20 22:06 Rouleaux Not Reportable 10/20/20 22:06 Hemoglobin C Crystals Not Reportable 10/20/20 22:06 Schistocytes Not Reportable 10/20/20 22:06 Malaria parasites Not Reportable 10/20/20 22:06 Bandar Bodies Not Reportable 10/20/20 22:06 Hem Pathologist Commnt No 10/20/20 22:06 Sodium 137 mmol/L (137-145) 10/20/20 22:06 Potassium 4.4 mmol/L (3.6-5.0) 10/20/20 22:06 Chloride 100.6 mmol/L (98-107) 10/20/20 22:06 Carbon Dioxide 24 mmol/L (22-30) 10/20/20 22:06 Anion Gap 17 mmol/L 10/20/20 22:06 BUN 16 mg/dL (9-20) 10/20/20 22:06 Creatinine 1.7 mg/dL (0.8-1.3) H 10/20/20 22:06 Estimated GFR 48 ml/min 10/20/20 22:06 BUN/Creatinine Ratio 9 % 10/20/20 22:06 Glucose 92 mg/dL (75-100) 10/20/20 22:06 Calcium 9.6 mg/dL (8.4-10.2) 10/20/20 22:06 Total Bilirubin 0.70 mg/dL (0.1-1.2) 10/20/20 22:06 AST 81 units/L (5-40) H 10/20/20 22:06 ALT 75 units/L (7-56) H 10/20/20 22:06 Alkaline Phosphatase 107 units/L (35-129) 10/20/20 22:06 Troponin T < 0.010 ng/mL (0.00-0.029) 10/20/20 22:06 NT-Pro-B Natriuret Pep 154.2 pg/mL (0-900) 10/20/20 22:06 Total Protein 8.1 g/dL (6.3-8.2) 10/20/20 22:06 Albumin 4.0 g/dL (3.9-5) 10/20/20 22:06 Albumin/Globulin Ratio 1.0 % 10/20/20 22:06 Assessment and Plan VTE prophylaxis?: Chemical Plan of care discussed with patient/family: Yes - Patient Problems (1) Acute chest pain Current Visit: Yes Status: Acute Plan to address problem: Admit the patient to the medical telemetry. Put the patient on chest pain pathway. Aspirin 325 mg p.o. daily and Lipitor 40 mg p.o. daily. Nitroglycerin as needed. We will do the serial cardiac enzyme. We also do echocardiogram and Lexiscan. Will consult cardiology if needed (2) Hypertensive urgency Current Visit: Yes Status: Acute Plan to address problem: We will put the patient on Norvasc 5 mg p.o. daily. Hydralazine 10 mg IV every 6 hours as needed and labetalol. We will monitor the blood pressure closely (3) Facial numbness Current Visit: No Status: Acute Plan to address problem: Patient has no facial numbness right now. We put the patient on aspirin 325 mg p.o. daily and Lipitor 40 mg p.o. daily. We will do MRI of the brain and ordered a echocardiogram and carotid duplex. If needed will consult neurology (4) Asthma Current Visit: Yes Status: Acute Plan to address problem: Asthma is a stable. We put the patient on oxygen per nasal cannula 3 L/min and DuoNeb by nebulizer every 4 hours as needed (5) DVT prophylaxis Current Visit: Yes Status: Acute Plan to address problem: Heparin 5000 units subcu every 8 hours for DVT prophylaxis and Pepcid 20 mg p.o. twice daily for GI prophylaxis. Patient is a full code
[2020-10-21] MEDS ORDERED: hydrALAZINE 20 MG/1 ML INJ IV PRN (03:32)
[2020-10-21] MEDS ORDERED: amLODIPine 5 MG TAB PO ONE (03:39)
[2020-10-21] MEDS ORDERED: hydrALAZINE 20 MG/1 ML INJ IV ONE (03:44)
[2020-10-21 04:12] LABS: Hematocrit 35.4 % (35.5-45.6); Hemoglobin 11.6 gm/dl (11.8-15.2); Mean Corpuscular HGB Conc 33 % (32-34); Mean Corpuscular Volume 78 fl (84-94); Platelet Count 106 K/mm3 (140-440); Red Blood Count 4.53 M/mm3 (3.65-5.03); Red Cell Distribution Width 15.8 % (13.2-15.2)
[2020-10-21 04:30] LABS: Basophils % (Auto) 0.4 % (0.0-1.8); Lymphocytes # (Auto) 3.7 K/mm3 (1.2-5.4); Lymphocytes % (Auto) 54.2 % (13.4-35.0); Monocytes % (Auto) 8.7 % (0.0-7.3)
[2020-10-21 04:31] LABS: Eosinophils # (Auto) 0.4 K/mm3 (0.0-0.4); Monocytes # (Auto) 0.6 K/mm3 (0.0-0.8)
[2020-10-21 04:32] LABS: BUN/Creatinine Ratio 11; Blood Urea Nitrogen 16 mg/dL (9-20); Calcium 9.3 mg/dL (8.4-10.2); Hemolysis Index 3
[2020-10-21] MEDS ORDERED: HEPARIN 5,000 UNIT/1 ML VIAL SUB-Q SCH (06:00)
[2020-10-21 06:40] LABS: Chol/HDL Ratio 3.1 %
[2020-10-21] MEDS ORDERED: predniSONE 10 MG TAB PO SCH (08:00)
[2020-10-21] MEDS ORDERED: predniSONE 50 MG TAB PO SCH (08:00)
[2020-10-21] MEDS ORDERED: REGADENOSON 0.4 MG/5 ML INJ IV ONE ×2 (08:23→08:34)
[2020-10-21] MEDS: IPRATROPIUM/ALBUTEROL SULFATE 3 ML AMPUL.NEB IH SCH ×2 (09:23→14:20)
[2020-10-21] MEDS ORDERED: ASPIRIN 325 MG TAB PO SCH ×2 (10:00)
[2020-10-21] MEDS ORDERED: amLODIPine 5 MG TAB PO SCH (10:00)
[2020-10-21] MEDS ORDERED: FAMOTIDINE 20 MG TAB PO SCH (10:00)
--- NOTE | 2020-10-21 11:05 | Vascular Lab Report ---
CLINICAL DATA: stroke TECHNICAL DATA: Imaging was performed from the base of the neck to the skull base using duplex sonography and color-f low imaging with emphasis on the carotid and vertebral arterial systems. RIGHT CAROTID ARTERY: The right internal carotid artery, right external carotid, and right common carotid artery all well i ivkas and patent. Mild atherosclerotic plaque present at the carotid bifurcation. Right common carotid artery peak systolic velocity 64.9 cm/sec Right internal carotid artery peak systolic velocity 99.5 cm/sec Right internal carotid artery end diastolic velocity 21.8cm/sec Right internal carotid artery/right common carotid artery ratio 1.53 Vertebral artery flow is antegrade. LEFT CAROTID ARTERY The left internal carotid artery, left external carotid, and left common carotid artery all well imag ed and patent. Mild atherosclerotic plaque present at the carotid bifurcation. Left common carotid artery peak systolic velocity 93.3 cm/sec Left internal carotid artery peak systolic velocity 100.1 cm/sec Left internal carotid artery end diastolic velocity 22.6 cm/sec Left internal carotid artery/right common carotid artery ratio 1.1 Normal antegrade flow of the vertebral arteries. IMPRESSION: 1. Sonographic NASCET Index This study proposed the incorporation of distal ICA flow velocity information on the conventional car otid Doppler study improving the diagnostic accuracy of PSV 1. Right and left internal carotid arteries demonstrate <15% stenosis: * deceleration spectral broadening with a peak systolic velocity (PSV) <125 cm/s 2. Less than 50% stenosis common carotid arteries. 3. Less than 50% stenosis external carotid arteries. 4. Antegrade flow both vertebral arteries. Signer Name: Cruz Haley MD Signed: 10/21/2020 11:00 AM Workstation Name: [id number]
--- NOTE | 2020-10-21 12:40 | Event Note ---
Date: 10/21/20 PT underwent Lexiscan MPI Stress test today. Per Dr Tin Figueroa: No evidence of reversible ischemia. ee dictated report for further. -Marcus ZAZUETA [facility] collaborating with Dr Tin Figueroa
--- NOTE | 2020-10-21 12:53 | Treadmill Report ---
NUCLEAR PERFUSION SCAN REFERRING PHYSICIAN: Dr. Blunt. PROTOCOL: The patient was assessed in postoperative state, given 10 mCi of technetium at rest. The patient underwent rest imaging. The patient underwent Lexiscan stress test per standard protocol. At peak stress, the patient was given 26 mCi hazardous waste technician 99m. Shortly thereafter, the patient underwent stress imaging. Raw imaging reveals GI artifact, no significant motion artifact. SPECT imaging examined carefully in horizontal long axis, vertical long axis, short axis views. Technically difficult study, but grossly no evidence of a significant fixed or reversible perfusion defect suggestive of prior infarction or ischemia. Gated wall motion reveals normal systolic thickening, calculated ejection fraction of 57%, no TID. CONCLUSIONS: 1. Technically difficult study due to GI artifact, probably normal without evidence of significant degree of ischemia or prior infarction. 2. Normal left ventricular chamber size and systolic performance with a calculated ejection fraction of 57% without evidence of transient ischemic dilatation or stress-induced segmental wall motion abnormalities. JOB# [id number] SBNalini/FRANC
--- NOTE | 2020-10-21 13:11 | Discharge Summary ---
Providers - Providers Date of Admission: 10/21/20 03:14 Date of discharge: 10/21/20 Attending physician: WICHO ZAMUDIO 10/21/20 Consult to Cardiac Rehabilitation [CONS] Routine Reason For Exam: Phase I 10/21/20 03:14 Occupational Therapy Evaluate and Treat [CONS] Routine Comment: Reason For Exam: Neuro deficits Physical Therapy Evaluation and Treat [CONS] Routine Comment: Reason For Exam: Neuro deficits 10/21/20 03:17 Speech Therapy Evaluation and Treat [CONS] Routine Reason For Exam: swallow eval Primary care physician: DEAN OF MEN Hospitalization Condition: Stable Hospital course: 75-year-old male with history of asthma was brought to the emergency room because of left-sided chest pain the night before with radiation to his left neck and face with associated left facial numbness. Chest pain was left-sided radiating to the leg 5/10 which is now resolved. Patient came to the emergency room yesterday and patient received a work-up which included labs, EKG, CT head. CT head was negative. At that time, the ER provider spoke to patient regarding admission. Patient states he was not approved for admission earlier so he left AMA and has now returned to be admitted. Patient currently denies any chest pain, neck pain or headache. States his facial numbness has resolved. Today in the emergency room patient blood pressure is 204/79. Patient is hesitant to take the blood pressure medication. But patient denied any chest pain or any numbness in the face Hospital course Patient was admitted to the hospital for evaluation of chest pain. Patient had a stress test this a.m. that showed no reversible ischemia. MRI could not be done as patient is claustrophobic. Ultrasound carotid doppler was negative for significant stenosis. Echocardiogram showed diastolic dysfunction with normal EF. This a.m., he denies any chest pain. He will be discharged on blood pressure medications and follow-up with her PCP has been advised. He has been advised to maintain a low-salt diet for now. He agrees with management Disposition: DC-01 TO HOME OR SELFCARE Final Discharge Diagnosis (Prints w/discharge instructions): Hypertensive urgency Time spent for discharge: 25 minutes - Discharge Diagnoses (1) Acute chest pain Status: Acute (2) Hypertensive urgency Status: Acute Core Measure Documentation - Palliative Care Palliative Care/ Comfort Measures: Not Applicable - Core Measures Any of the following diagnoses?: none Exam - Constitutional Vitals: Temp Pulse Resp BP Pulse Ox 97.8 F 61 18 161/68 98 10/21/20 12:06 10/21/20 12:06 10/21/20 12:06 10/21/20 12:06 10/21/20 12:06 General appearance: Present: no acute distress, well-nourished - EENT Eyes: Present: PERRL ENT: hearing intact, clear oral mucosa - Neck Neck: Present: supple, normal ROM - Respiratory Respiratory effort: normal Respiratory: bilateral: CTA - Cardiovascular Heart Sounds: Present: S1 & S2. Absent: rub, click - Extremities Extremities: pulses symmetrical, No edema Peripheral Pulses: within normal limits - Abdominal General gastrointestinal: Present: soft, non-tender, non-distended, normal bowel sounds Male genitourinary: Present: normal - Integumentary Integumentary: Present: clear, warm, dry - Musculoskeletal Musculoskeletal: gait normal, strength equal bilaterally - Psychiatric Psychiatric: appropriate mood/affect, intact judgment & insight - Neurologic Neurologic: CNII-XII intact, moves all extremities Plan Diet: low salt Additional Instructions: Take amlodipine 10 mg daily. Take hydralazine 50 mg every 8 hours. Continue aspirin 81 mg daily. Follow up with a primary medical doctor in 1-2 weeks Follow up with: PRIMARY CARE, [Primary Care Provider] - 3-5 Days Prescriptions: amLODIPine 10 mg PO QDAY #30 tablet hydrALAZINE [Apresoline TAB] 50 mg PO Q8HR #180 tab Aspirin EC [Halfprin EC] 81 mg PO QDAY #30 tablet.
[2020-10-21 15:55] VITALS: BP 147/60
[2020-10-22] MEDS ORDERED: predniSONE 50 MG TAB PO SCH (08:00)
[2020-10-23] MEDS ORDERED: predniSONE 20 MG TAB PO SCH (08:00)
--- NOTE | 2020-10-23 09:30 | Electrocardiograph Report ---
[facility] Test Date: 2020-10-20 Test Time: 22:24:06 Pat Name: JACLYN TORRES Department: Room: A468 1 Gender: M Gifts Officer: JIM : 1945 Requested By: ROSIO FRIAS Order Number: [id number] Reading MD: Seb Figueroa Measurements Intervals [place] Rate: 67 P: 59 ID: [id number] QRS: 51 QRSD: 76 T: 56 QT: 385 QTc: 409 Interpretive Statements Sinus rhythm Probable anteroseptal infarct, old Compared to ECG 10/20/2020 12:27:37 Myocardial infarct finding now present Electronically Signed On 10-23-2020 9:30:27 EDT by Seb Figueroa
--- NOTE | 2020-10-23 09:31 | Electrocardiograph Report ---
[facility] Test Date: 2020-10-21 Test Time: 07:26:45 Pat Name: JACLYN TORRES Department: Room: A468 1 Gender: M Baby Registry Sales Consultant: ARAMIS : 1945 Requested By: KWESI MILNER Order Number: [id number] Reading MD: Seb Figueroa Measurements Intervals [place] Rate: 56 P: 56 [place]: 189 QRS: 58 QRSD: 94 T: 79 QT: 434 QTc: 420 Interpretive Statements Sinus rhythm Probable anteroseptal infarct, old Electronically Signed On 10-23-2020 9:31:24 EDT by Seb Figueroa
--- NOTE | 2020-10-23 09:32 | Treadmill Report ---
[facility] Test Date: 2020-10-21 Test Time: 08:28:00 Pat Name: JACLYN TORRES Department: Room: A468 1 Gender: M Barman: Melia Nunes : 1945 Requested By: KWESI MILNER Order Number: [id number] Reading MD: Seb Figueroa Interpretive Statements Electronically Signed On 10-23-2020 9:31:45 EDT by Seb Figueroa
[2020-10-24] MEDS ORDERED: predniSONE 10 MG TAB PO SCH (08:00)
[2020-10-24] MEDS ORDERED: predniSONE 20 MG TAB PO SCH (08:00)
[2020-10-26] MEDS ORDERED: predniSONE 10 MG TAB PO SCH (08:00)
== END 2020-10-21 19:07 | disposition home or self-care (01) ==
LOC: ED 19:31 → 4A 10-21 03:14
PROVIDERS: ADMIT Hospitalist; ATTEND Internal Medicine
DX: R07.89 Other chest pain (principal); I16.0 Hypertensive urgency; R20.0 Anesthesia of skin; J45.909 Unspecified asthma, uncomplicated; Z79.82 Long term (current) use of aspirin
CPT/HCPCS: 36415; 78452; 80048; 80053; 80061; 82962; 83880; 84484; 85025; 92610; 93005; 93017; 93306; 93880; 94640; 96374; 97161; 99284; A9502; G0378; J0360; J2785; 85007

== ENCOUNTER 2020-12-25 15:38 | Emergency (ER) | payer MEDICARE ==
--- NOTE | 2020-12-25 15:50 | Event Note ---
ED Screening Note ED Screening Note: ill frail 75 yo comes to er with 2 w hx fatigue which he is saying is from sun exposure. he is pale and frail on exam pmh htn poor informant left ER denies any cp or sob no focal neuro deficit on exam ambulatory This initial assessment/diagnostic orders/clinical plan/treatment(s) is/are subject to change based on patients health status, clinical progression and re- assessment by fellow clinical providers in the ED. Further treatment and workup at subsequent clinical providers discretion. Patient/guardian urged not to elope from the ED as their condition may be serious if not clinically assessed and managed. Initial orders include: ro acs/infection/anemia/hypothyroridism/dehydration
--- NOTE | 2020-12-25 16:27 | XRay Report ---
XR chest routine 2V INDICATION / CLINICAL INFORMATION: fatigue COMPARISON: October 20, 2020 FINDINGS: SUPPORT DEVICES: None. HEART / MEDIASTINUM: No significant abnormality. LUNGS / PLEURA: Lungs are clear. Costophrenic sulci are sharp. No pneumothorax. ADDITIONAL FINDINGS: No significant additional findings. IMPRESSION: 1. No acute findings. Signer Name: Lele Richter MD Signed: 12/25/2020 4:22 PM Workstation Name: [id number]
[2020-12-25 16:46] LABS: Basophils # (Auto) 0.1 K/mm3 (0.0-0.1); Basophils % (Auto) 0.6 % (0.0-1.8); Eosinophils # (Auto) 0.5 K/mm3 (0.0-0.4); Eosinophils % (Auto) 5.8 % (0.0-4.3); Hematocrit 28.7 % (35.5-45.6); Hemoglobin 9.6 gm/dl (11.8-15.2); Lymphocytes # (Auto) 2.3 K/mm3 (1.2-5.4); Lymphocytes % (Auto) 26.7 % (13.4-35.0); Mean Corpuscular HGB Conc 33 % (32-34); Mean Corpuscular Volume 78 fl (84-94); Monocytes # (Auto) 1.1 K/mm3 (0.0-0.8); Monocytes % (Auto) 12.4 % (0.0-7.3); Platelet Count 207 K/mm3 (140-440); Red Blood Count 3.69 M/mm3 (3.65-5.03); Red Cell Distribution Width 16.8 % (13.2-15.2)
[2020-12-25 16:56] LABS: INR 1.09 (0.87-1.13)
[2020-12-25 16:57] LABS: Alanine Aminotransferase 80 units/L (7-56); Albumin 2.7 g/dL (3.9-5); BUN/Creatinine Ratio 13; Blood Urea Nitrogen 13 mg/dL (9-20); Calcium 8.4 mg/dL (8.4-10.2); Hemolysis Index 9
[2020-12-25 18:08] LABS: INR 1.06 (0.87-1.13)
[2020-12-25 18:09] LABS: Partial Thromboplastin Time 29.7 Sec. (24.2-36.6)
[2020-12-25] MEDS ORDERED: SODIUM CHLORIDE 0.9% 1000 ML 1,000 ML IV ONE (22:33)
--- NOTE | 2020-12-25 22:33 | Emergency Department Report ---
- General Chief complaint: Weakness Stated complaint: EXPOSED TO SUN PUI?: No Time Seen by Provider: 12/25/20 15:50 Source: patient Mode of arrival: Ambulatory Limitations: No Limitations - History of Present Illness Initial comments: Patient is a 75-year-old male who presents emergency room with complaints of generalized weakness and fatigue. Patient states that his symptoms started about 2 weeks ago after having heat exhaustion from 8 hours of sun exposure. Patient states that his fatigue and weakness have not improved. Patient states his symptoms have worsened. Patient denies chest pain or shortness of breath. Patient denies falls. Patient denies loss of conscious. Patient denies syncope. Patient denies fever and chills. Patient states she has a past medical history of hypertension but is not taking any blood pressure medication. He states he has not seen his primary care in many years. Patient denies recent travel. Patient denies recent international travel. Patient denies exposure to the novel coronavirus. Patient denies sick contacts. Patient denies fever and chills. Patient denies cough. Patient denies diarrhea. Patient denies coming in contact with anybody with symptoms of the novel coronavirus. MD Complaint: generalized weakness, lack of energy -: Sudden Severity: severe Consistency: constant Improves with: rest Worsens with: movement, exertion Associated Symptoms: denies: chest pain, confusion, dark stools, diaphoresis, dysuria, easy bruising, fever/chills, headaches - Related Data Previous Rx's Medication Instructions Recorded Last Taken Type Albuterol Mdi (or & Nicu Only) 2 puff IH QID PRN #1 inhalation 12/04/17 Unknown Rx [ProAir HFA Inhaler] Aspirin EC [Halfprin EC] 81 mg PO QDAY #30 tablet. 10/21/20 Unknown Rx hydrALAZINE [Apresoline TAB] 50 mg PO Q8HR #180 tab 10/21/20 Unknown Rx Iron Fum,Ps/Folic/Bcomp,C No.9 1 each PO DAILY 15 Days #15 capsule 12/26/20 Unknown Rx [Integra Plus Capsule] amLODIPine 5 mg PO BID 15 Days #30 tablet 12/26/20 Unknown Rx Allergies Allergy/AdvReac Type Severity Reaction Status Date / Time No Known Allergies Allergy Unverified 12/04/17 11:03 ED Review of Systems ROS: Stated complaint: EXPOSED TO SUN Other details as noted in HPI Constitutional: malaise, weakness. denies: chills, fever Eyes: denies: eye pain, eye discharge, vision change ENT: denies: ear pain, throat pain Respiratory: denies: cough, shortness of breath, wheezing Cardiovascular: denies: chest pain, palpitations Endocrine: no symptoms reported Gastrointestinal: denies: abdominal pain, nausea, diarrhea, melena Genitourinary: denies: urgency, dysuria Musculoskeletal: denies: back pain, joint swelling, arthralgia Skin: denies: rash, lesions Neurological: as per HPI, weakness. denies: headache, paresthesias Psychiatric: denies: anxiety, depression Hematological/Lymphatic: denies: easy bleeding, easy bruising ED Past Medical Hx - Past Medical History Previous Medical History?: Yes Hx Asthma: Yes ( a child) - Surgical History Past Surgical History?: Yes Additional Surgical History: HERNIA - Family History Family history: no significant - Social History Smoking Status: Never Smoker Substance Use Type: None - Medications Home Medications: Home Medications Medication Instructions Recorded Confirmed Last Taken Type Albuterol Mdi (or & Nicu Only) 2 puff IH QID PRN #1 inhalation 12/04/17 Unknown Rx [ProAir HFA Inhaler] Aspirin EC [Halfprin EC] 81 mg PO QDAY #30 tablet. 10/21/20 Unknown Rx hydrALAZINE [Apresoline TAB] 50 mg PO Q8HR #180 tab 10/21/20 Unknown Rx Iron Fum,Ps/Folic/Bcomp,C No.9 1 each PO DAILY 15 Days #15 capsule 12/26/20 Unknown Rx [Integra Plus Capsule] amLODIPine 5 mg PO BID 15 Days #30 tablet 12/26/20 Unknown Rx ED Physical Exam - General Limitations: No Limitations General appearance: alert, in no apparent distress - Head Head exam: Present: atraumatic, normocephalic - Eye Eye exam: Present: normal appearance, PERRL Pupils: Present: normal accommodation - ENT ENT exam: Present: mucous membranes dry - Neck Neck exam: Present: normal inspection - Respiratory Respiratory exam: Present: normal lung sounds bilaterally. Absent: respiratory distress, wheezes, rales - Cardiovascular Cardiovascular Exam: Present: regular rate, normal rhythm, normal heart sounds. Absent: systolic murmur, diastolic murmur, rubs, gallop - GI/Abdominal GI/Abdominal exam: Present: soft, normal bowel sounds. Absent: distended, tenderness, guarding - Rectal Rectal exam: Present: deferred - Extremities Exam Extremities exam: Present: normal inspection - Back Exam Back exam: Present: normal inspection - Neurological Exam Neurological exam: Present: alert, oriented X3, CN II-XII intact, normal gait - Psychiatric Psychiatric exam: Present: normal affect, normal mood - Skin Skin exam: Present: warm, dry, intact, normal color. Absent: rash - Assessment Assessment Interval: Baseline - Level of Consciousness 1a. Level of Consciousness: alert/keenly responsive - LOC Questions 1b. LOC Questions: answers both correctly - LOC Command 1c. LOC Commands: performs tasks correctly - Best Gaze 2. Best Gaze: normal - Visual 3. Visual: no visual loss - Facial Palsy 4. Facial Palsy: normal symmetrical movement - Motor Arm 5a. Motor Arm Left: no drift 5b. Motor Arm Right: no drift - Motor Leg 6a. Motor Leg Left: no drift 6b. Motor Leg Right: no drift - Limb Ataxia 7. Limb Ataxia: absent - Sensory 8. Sensory: normal - Best Language 9. Best Language: no aphasia - Dysarthria 10. Dysarthria: normal - Extinction and Inattention 11. Extinction/Inattention: no abnormality - Scoring Total Score: 0 Stroke Severity: No Stroke Symptoms ED Course Vital Signs 12/25/20 12/25/20 12/25/20 15:48 22:38 23:06 Temperature 98.7 F Pulse Rate 78 64 69 Respiratory 18 18 Rate Blood Pressure 193/72 Blood Pressure 150/60 199/59 [Right] O2 Sat by Pulse 97 99 Oximetry 12/25/20 12/26/20 12/26/20 23:58 00:06 01:11 Temperature Pulse Rate 80 87 85 Respiratory 18 Rate Blood Pressure 177/68 198/73 Blood Pressure 193/64 [Right] O2 Sat by Pulse 100 Oximetry 12/26/20 12/26/20 02:06 03:07 Temperature Pulse Rate 76 81 Respiratory 18 18 Rate Blood Pressure Blood Pressure 174/62 160/59 [Right] O2 Sat by Pulse 98 98 Oximetry - Reevaluation(s) Reevaluation #1: Patient's initial blood pressure was 202/60. Patient placed on a unit technician and the blood pressure was rechecked and is 199/70. Patient was given 20 mg of hydralazine. 12/25/20 22:59 Reevaluation #2: Patient's blood pressure went down a little bit but is back up. Patient was given 5 Norvasc. 12/24/20 23:49 Reevaluation #3: Patient still receiving IV fluids. Patient blood pressure has improved. Jordyn ent states he is feeling better. 12/26/20 00:10 Reevaluation #4: Patient blood pressure back up. Patient was given 5 of Norvasc. Patient states he is feeling much better. 12/26/20 01:10 ED Medical Decision Making - Lab Data Result diagrams: 12/25/20 16:00 12/26/20 01:20 - EKG Data -: EKG Interpreted by Me EKG shows normal: sinus rhythm, axis, intervals, QRS complexes, ST-T waves Rate: normal - Radiology Data Radiology results: report reviewed, image reviewed interpreted by me: Chest x-ray: No pneumonia, no pneumothorax, no foreign body, no osseous findings, no acute findings XR chest routine 2V INDICATION / CLINICAL INFORMATION: fatigue COMPARISON: October 20, 2020 FINDINGS: SUPPORT DEVICES: None. HEART / MEDIASTINUM: No significant abnormality. LUNGS / PLEURA: Lungs are clear. Costophrenic sulci are sharp. No pneumothorax. ADDITIONAL FINDINGS: No significant additional findings. IMPRESSION: 1. No acute findings. - Medical Decision Making Patient is a 75-year-old male that presents emergency room with complaints of fatigue and weakness. Patient found to have extremely low blood pressure. Patient given hydralazine for blood pressure decrease. Patient then required 2 s eparate doses of 5 mg of Norvasc and his blood pressure came down as patient had labs done which were unremarkable except for hyponatremia, dehydration and anemia. Patient given normal saline bolus and patient states he felt better. Patient given iron supplement in the time of discharge. Patient had an EKG done which is negative for acute findings. Patient had chest x-ray which was negative. Plan. Personally reviewed the EKG and chest x-ray. Patient stable for discharge. Patient not require further emergency medical services or inpatient services. Patient discharged home with a prescription for Norvasc and medication. Patient given discharge instructions. Critical care time documented due to the multiple reassessments, prolonged time at the bedside, interpretation of diagnostics and labs. - Differential Diagnosis Weakness, dehydration, fatigue, anemia, electrolyte imbalance Critical Care Time: Yes Critical care time in (mins) excluding proc time.: 35 Critical care attestation.: If time is entered above; I have spent that time in minutes in the direct care of this critically ill patient, excluding procedure time. Critical Care Time: 35 MINUTES ED Disposition Clinical Impression: Weakness, Dehydration, Hypertensive urgency, Hyponatremia, Abnormal LFTs (liver function tests) Fatigue Qualifiers: Fatigue type: unspecified Qualified Code(s): R53.83 - Other fatigue Anemia Qualifiers: Anemia type: unspecified type Qualified Code(s): D64.9 - Anemia, unspecified Disposition: DC- TO HOME OR SELFCARE Is pt being admited?: No Does the pt Need Aspirin: No Condition: Stable Instructions: Fatigue, Dehydration, Adult, [id number], Hypertension, Adult, [id number], Preventing Hypertension Additional Instructions: Patient to follow-up with primary care in 2 to 3 days. Patient to monitor blood pressure at home. Patient to keep a blood pressure log. Patient to take blood pressure log to all follow-up appointments. Patient to follow-up with primary care within 2 to 3 days for lab rechecks. Patient to eat a low-salt diet. Patient to eat a heart healthy diet. Patient to rest. Patient to increase water. Patient to avoid strenuous exercise or heavy lifting until cleared by primary care.. Patient to take meds as directed. Patient to return to the ER if condition worsens, changes or new symptoms arise. Prescriptions: amLODIPine 5 mg PO BID 15 Days #30 tablet Iron Fum,Ps/Folic/Bcomp,C No.9 [Integra Plus Capsule] 1 each PO DAILY 15 Days #15 capsule Referrals: PRIMARY CARE, [Primary Care Provider] - 2-3 Days Time of Disposition: 02:48
[2020-12-25] MEDS ORDERED: hydrALAZINE 20 MG/1 ML INJ IV ONE (22:59)
[2020-12-25] MEDS ORDERED: amLODIPine 5 MG TAB PO ONE (23:58)
[2020-12-26] MEDS ORDERED: amLODIPine 5 MG TAB PO ONE (01:07)
[2020-12-26 01:49] LABS: BUN/Creatinine Ratio 13; Blood Urea Nitrogen 12 mg/dL (9-20); Calcium 8.3 mg/dL (8.4-10.2); Hemolysis Index 9
[2020-12-26 02:31] LABS: Bilirubin,Urine NEG (Negative); Blood,Urine NEG (Negative); Color,Urine Amber (Yellow); Protein,Urine <15 mg/dL mg/dL (Negative)
[2020-12-26 03:09] VITALS: BP 160/59
--- NOTE | 2020-12-26 18:07 | Electrocardiograph Report ---
[facility] Test Date: 2020-12-25 Test Time: 15:53:59 Pat Name: JACLYN TORRES Department: Room: Gender: M Vp Training: BENJAMIN : 1945 Requested By: KIRSTY GARZA Order Number: [id number] Reading MD: Osmin De Leon Measurements Intervals [place] Rate: 70 P: 56 MI: 189 QRS: 42 QRSD: 83 T: 59 QT: 390 QTc: 422 Interpretive Statements Sinus rhythm Compared to ECG 10/21/2020 07:26:45 No significant change Electronically Signed On 12-26-2020 18:06:59 EDT by Osmin De Leon
== END 2020-12-26 03:09 | disposition home or self-care (01) ==
LOC: ED 15:38
DX: D64.9 Anemia, unspecified (principal); E87.1 Hypo-osmolality and hyponatremia; R94.5 Abnormal results of liver function studies; I16.0 Hypertensive urgency; R53.83 Other fatigue; R53.1 Weakness; E86.0 Dehydration; J45.909 Unspecified asthma, uncomplicated; Z98.890 Other specified postprocedural states; Z79.899 Other long term (current) drug therapy
CPT/HCPCS: 36415; 71046; 80048; 80053; 81001; 82140; 82550; 83735; 84100; 84443; 84484; 85025; 85610; 85730; 93005; 96361; 96374; 99291; J7030